=== PATIENT | female | born 1965 | race Two or more races ===

== ENCOUNTER 2019-10-20 19:26 | Emergency (ER) | payer OTHER ==
[~2019-10-20] VITALS: Ht 165.1 cm; Wt 78.9 kg
--- NOTE | 2019-10-20 19:47 | NUR ---
Dr. Sage at bedside for MSE.
--- NOTE | 2019-10-20 19:55 | NUR ---
Patient discharged to home in stable conditon. Written and verbal after care instructions given. Patient verbalizes understanding of instructions. Pt ambulated out of ER with steady gait, no acute signs of distress, VSS, all belongings taken.
[2019-10-20 20:04] VITALS: BP 126/91
== END 2019-10-20 20:05 | disposition home or self-care (01) ==
LOC: ER 19:26
DX: H60.502 Unspecified acute noninfective otitis externa, left ear (principal)
CPT/HCPCS: A4663